=== PATIENT | female | born 1965 ===

== ENCOUNTER 2018-08-24 16:43 | Emergency (ER) | payer MEDICAID, OTHER ==
[2018-08-24 17:35] VITALS: BP 134/86; PULSE 82; RESP 18; TEMP 98.7; O2SAT 99
[2018-08-24] MEDS ORDERED: DiphenhydrAMINE 50 mg/ml Inj IVP STA (17:44)
[2018-08-24] MEDS ORDERED: Sodium Chloride 0.9% 1,000 ML IV STA (17:44)
[2018-08-24 18:14] LABS: BASO # 0.05 K/mm3 (0.0-2.0); BASO % 0.6 % (0.0-3.0); EOS # 0.2 (0.0-0.7); EOS % 2.8 % (1.5-5.0); GRAN # 4.34 (1.4-6.5); GRAN % 53.4 % (50.0-68.0); HEMOGLOBIN 15.4 g/dL (12.0-16.0); LYMPH % 36.7 % (22.0-35.0); MEAN CELL VOLUME 89.7 fl (80.0-105.0); MEAN CORPUSCULAR HEMOGLOBIN 30.6 pg (25.0-35.0); MEAN CORPUSCULAR HGB CONC 34.1 g/dl (31.0-37.0); MEAN PLATELET VOLUME 11.1 fl (7.0-11.0); MONO # 0.5 (0.1-0.6); MONO % 6.5 % (1.0-6.0); RBC 5.04 10^6/uL (3.5-6.1); RED CELL DISTRIBUTION WIDTH 13.3 % (11.5-14.5); WHITE BLOOD COUNT 8.1 10^3/uL (4.5-11.0)
[2018-08-24 18:18] LABS: INR 1.05; PARTIAL THROMBOPLASTIN TIME 28.9 Seconds (25.1-36.5)
[2018-08-24 18:22] LABS: ALB/GLOB RATIO 1.2 (1.1-1.8); ALBUMIN 4.8 g/dL (3.0-4.8); ALT/SGPT 28 U/L (7-56); AST/SGOT 30 U/L (14-36); BLOOD UREA NITROGEN 13 mg/dL (7-21); CALCIUM 9.7 mg/dL (8.4-10.5); GFR NON-AFRICAN AMERICAN > 60
--- NOTE | 2018-08-24 18:23 | ED PDOC ---
Arrival/HPI - General Chief Complaint: Headache Time Seen by Provider: 08/24/18 17:30 Historian: Patient - History of Present Illness Narrative History of Present Illness (Text): 08/24/18 18:24 53 year old female with PMH of ICH (last 2015), Hypertension, asthma, presents to the emergency department complaining of headache x 3 days. Headache is throbbing, circumferential, and constant. Intermittent blurry vision, states she's not sure if it's from her need for eyeglasses or not. Pt has not taken any medication for pain. Of note, pt never followed up with neurosurgery or neurology for her history of ICH. Denies fevers, chills, vision changes, dizziness, N/V, numbness, weakness, parethesias, difficulty speaking, difficulty walking, abdominal pain, chest pain, SOB, rash, neck pain, sinus congestion, sore throat, or any other associated symptoms. Past Medical History - Provider Review Nursing Documentation Reviewed: Yes - Tetanus Immunization Tetanus Immunization: Up to Date - Reproductive Menopause: Yes - Cardiac Hx Hypertension: Yes - Pulmonary Hx Asthma: Yes - Psychiatric Hx Depression: Yes Hx Emotional Abuse: No Hx Physical Abuse: No Hx Substance Use: No - Suicidal Assessment Feels Threatened In Home Enviroment: No Family/Social History - Physician Review Nursing Documentation Reviewed: Yes Family/Social History: No Known Family HX Smoking Status: Light Smoker < 10 Cigarettes Daily Hx Alcohol Use: Yes Hx Substance Use: No Hx Substance Use Treatment: No Allergies/Home Meds Allergies/Adverse Reactions: Allergies tramadol Allergy (Verified 08/24/18 17:22) SHORTNESS OF BREATH Home Medications: Home Meds Medication Instructions Recorded Confirmed Lisinopril/Hydrochlorothiazide 1 tab PO DAILY 06/19/12 03/24/14 [Lisinopril and Hydrochlorothiazide 25 mg-20 M] Fluticasone/Salmeterol [Advair 1 puff IH BID PRN 08/11/12 03/24/14 Diskus 250/50] Ipratropium [place] [Atrovent Hfa] 0.017 mg IH DAILY PRN 08/11/12 03/24/14 Albuterol 0.083% [Albuterol 3 ml IH PRN PRN 12/16/12 03/24/14 Sulfate 3 Ml] Physical Exam Vital Signs Reviewed: Yes Vital Signs Temp Pulse Resp BP Pulse Ox 12/24/18 17:19 98.7 F 82 18 134/86 99 Temperature: Afebrile Blood Pressure: Normal Pulse: Regular Respiratory Rate: Normal Appearance: Positive for: Well-Appearing, Non-Toxic, Comfortable Pain Distress: None Mental Status: Positive for: Alert and Oriented X 3 - Systems Exam Head: Present: Atraumatic, Normocephalic Pupils: Present: PERRL Extroacular Muscles: Present: EOMI Conjunctiva: Present: Normal Ears: Present: Normal, NORMAL TM Mouth: Present: Moist Mucous Membranes Pharnyx: Present: Normal. No: ERYTHEMA, EXUDATE, TONSILS ENLARGED Nose (External): Present: Atraumatic Nose (Internal): Present: Normal Inspection, Clear Mucous Neck: Present: Normal Range of Motion Respiratory/Chest: Present: Clear to Auscultation, Good Air Exchange. No: Respiratory Distress, Accessory Muscle Use Cardiovascular: Present: Regular Rate and Rhythm, Normal S1, S2. No: Murmurs Abdomen: Present: Normal Bowel Sounds. No: Tenderness, Distention, Peritoneal Signs, Rebound, Guarding Back: Present: Normal Inspection Upper Extremity: Present: Normal Inspection, Normal ROM, NORMAL PULSES, Neurovascularly Intact, Capillary Refill < 2s. No: Cyanosis, Edema Lower Extremity: Present: Normal Inspection, NORMAL PULSES, Normal ROM, Neurovascularly Intact, Capillary Refill < 2 s. No: Edema Neurological: Present: GCS=15, CN II-XII Intact, Speech Normal, Motor Func Grossly Intact, Normal Sensory Function, Normal Cerebellar Funct, Gait Normal, Memory Normal Skin: Present: Warm, Dry, Normal Color. No: Rashes Lymphatic: No: Cervical Adenopathy Psychiatric: Present: Alert, Oriented x 3, Normal Insight, Normal Concentration, Normal Affect, Normal Mood Medical Decision Making ED Course and Treatment: 08/24/18 18:23 Initial Plan: * CBC, CMP * Coags * CT Head * UA * Tylenol * Reglan * Benadryl * IVF Head CT: no ICH, stable chronic infarct CBC, CMP: unremarkable Coags: unremarkable Diagnostic testing results discussed with patient, who states headache is not resolved. Offered inpatient observation for intractable headache. Pt requesting percocet. When told narcotics are not indicated, patient became agitated. Asking to leave emergency department, states she has pain medication at home. Pt does not want inpatient observation or further pain management. Patient wishes to leave against medical advice. Risks of leaving against medical advice discussed in depth with patient, including but not limited to , disa bility, and worsening of symptoms. Patient aware of the benefit of staying, including urinalysis, inpatient observation, further pain management. Patient verbalized understanding and was given the opportunity to ask questions. Patient continues to wish to leave AMA. Pt A&Ox3 with stable vital signs, ambulating with steady gait at this time. - Lab Interpretations Lab Results: 08/24/18 18:00 08/24/18 18:00 Lab Results 08/24/18 18:00: PT 12.0, INR 1.05, APTT 28.9 08/24/18 18:00: Sodium 144, Potassium 3.9, Chloride 111 H, Carbon Dioxide 22, Anion Gap 15, BUN 13, Creatinine 0.9, Est GFR ( Amer) > 60, Est GFR (Non- Af Amer) > 60, Random Glucose 86, Calcium 9.7, Total Bilirubin 1.2, AST 30, ALT 28, Alkaline Phosphatase 74, Total Protein 8.8 H, Albumin 4.8, Globulin 4.0, Albumin/Globulin Ratio 1.2 08/24/18 18:00: WBC 8.1, RBC 5.04, Hgb 15.4, Hct 45.2, MCV 89.7, MCH 30.6, MCHC 34.1, RDW 13.3, Plt Count 267, MPV 11.1 H, Gran % 53.4, Lymph % (Auto) 36.7 H, Mcdonald % (Auto) 6.5 H, Eos % (Auto) 2.8, Baso % (Auto) 0.6, Gran # 4.34, Lymph # (Auto) 3.0, Mcdonald # (Auto) 0.5, Eos # (Auto) 0.2, Baso # (Auto) 0.05 I have reviewed the lab results: Yes - RAD Interpretation Narrative RAD Interpretations (Text): 08/24/18 18:[address]: FINDINGS: HEMORRHAGE: No intracranial hemorrhage. BRAIN: No mass effect or edema. No atrophy or chronic microvascular ischemic changes. Stable small basal ganglia infarct common no change compared to 12/16/2012. VENTRICLES: Unremarkable. No hydrocephalus. CALVARIUM: Stable crossed craniotomy findings PARANASAL SINUSES: Unremarkable as visualized. No significant inflammatory changes. MASTOID AIR CELLS: Unremarkable as visualized. No inflammatory changes. OTHER FINDINGS: None. IMPRESSION: No acute intracranial abnormalities. No significant findings to account for the clinical presentation. No significant interval change compared to the prior examination(s). 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 - Medication Orders Current Medication Orders: Sodium Chloride (Sodium Chloride 0.9%) 1,000 mls @ 999 mls/hr IV .Q1H1M STA Stop: 08/24/18 18:44 Last Admin: 08/24/18 18:12 Dose: 999 mls/hr eMAR Start Stop Document 08/24/18 18:12 SS (Rec: 08/24/18 18:12 SS [id number]) Intravenous Solution Start Date 08/24/18 Start Time 18:12 End Date 08/24/18 End time 19:12 Total Infusion Time 60 Discontinued Medications Acetaminophen (Tylenol 325mg Tab) 650 mg PO STAT STA Stop: 08/24/18 17:45 Last Admin: 08/24/18 18:13 Dose: 650 mg Diphenhydramine HCl (Benadryl) 25 mg IVP STAT STA Stop: 08/24/18 17:45 Last Admin: 08/24/18 18:13 Dose: 25 mg IVP Administration Document 08/24/18 18:13 SS (Rec: 08/24/18 18:13 SS [id number]) Charges for Administration # of IVP Administrations 1 Metoclopramide HCl (Reglan) 10 mg IVP STAT STA Stop: 08/24/18 17:45 Last Admin: 08/24/18 18:13 Dose: 10 mg IVP Administration Document 08/24/18 18:13 SS (Rec: 08/24/18 18:13 SS [id number]) Charges for Administration # of IVP Administrations 1 Disposition/Present on Arrival - Present on Arrival Any Indicators Present on Arrival: No History of DVT/PE: No History of Uncontrolled Diabetes: No Urinary Catheter: No History of Decub. Ulcer: No History Surgical Site Infection Following: None - Disposition Have Diagnosis and Disposition been Completed?: No Diagnosis: Headache Disposition: HOME/ ROUTINE Disposition Time: 18:45 Patient Problems: Current Active Problems Problem Status Onset Headache Acute Condition: STABLE Discharge Instructions (ExitCare): Headache, Adult, Leaving Against Medical Advice Additional Instructions: Please return if you wish to be re-evaluated or if new/worsening symptoms develop Followup with primary doctor within 1-2 days Referrals: Kathi Escamilla [Primary Care Provider] - Follow up with primary Forms: [employer])
--- NOTE | 2018-08-24 18:29 | CT ---
Date of service: 08/24/2018 PROCEDURE: CT HEAD WITHOUT CONTRAST. HISTORY: headache, h/o ICH COMPARISON: 12/16/2012 TECHNIQUE: Axial computed tomography images were obtained through the head/brain without intravenous contrast. Supplemental Coronal and Sagittal projections created and reviewed. Radiation dose: Total exam DLP = 1069.14 mGy-cm. This CT exam was performed using one or more of the following dose reduction techniques: Automated exposure control, adjustment of the mA and/or kV according to patient size, and/or use of iterative reconstruction technique. FINDINGS: HEMORRHAGE: No intracranial hemorrhage. BRAIN: No mass effect or edema. No atrophy or chronic microvascular ischemic changes. Stable small basal ganglia infarct common no change compared to 12/16/2012. VENTRICLES: Unremarkable. No hydrocephalus. CALVARIUM: Stable crossed craniotomy findings PARANASAL SINUSES: Unremarkable as visualized. No significant inflammatory changes. MASTOID AIR CELLS: Unremarkable as visualized. No inflammatory changes. OTHER FINDINGS: None. IMPRESSION: No acute intracranial abnormalities. No significant findings to account for the clinical presentation. No significant interval change compared to the prior examination(s).
[2018-08-24 19:36] LABS: URINE APPEARANCE SLIGHT-CLOUDY (CLEAR); URINE BILIRUBIN NEGATIVE (NEGATIVE); URINE BLOOD NEGATIVE (NEGATIVE); URINE COLOR YELLOW (YELLOW); URINE GLUCOSE (UA) NEGATIVE (NEGATIVE); URINE LEUKOCYTE ESTERASE TRACE Leu/uL (NEGATIVE); URINE PROTEIN NEGATIVE mg/dL (<30 mg/dL); URINE UROBILINOGEN 0.2 E.U./dL (<1 E.U./dL)
[2018-08-24 19:42] LABS: URINE RBC 0 - 2 /hpf (0-2)
[2018-08-24 19:43] LABS: URINE BACTERIA TRACE /hpf
== END 2018-08-24 20:02 | disposition home or self-care (01) ==
LOC: ED 16:43
DX: R51 Headache (principal); I10 Essential (primary) hypertension; F17.210 Nicotine dependence, cigarettes, uncomplicated
CPT/HCPCS: 70450; 80053; 81001; 85025; 85610; 85730; 96361; 96374; 96375; 99285; J1200; J2765; J7030